=== PATIENT | female | born 1955 | race Hispanic/Latino ===

== ENCOUNTER 2021-08-16 10:01 | Outpatient (CLI) | payer MEDICARE, SELFPAY ==
[2021-08-16 20:14] LABS: Hemoglobin 12.3 g/dL (12.0-15.0); Mean Corpuscular HGB Conc 31.5 g/dl (32-36); Mean Corpuscular Hemoglobin 29.9 pg (26-34); Mean Corpuscular Volume 94.7 fl (80-100); Mean Platelet Volume 9.3 fl (7.4-10.4); Platelet Count Result 334 k/mm3 (150-375); Red Blood Count 4.12 M/mm3 (4.2-5.4); Red Cell Distribution Width 13.4 % (11.5-14.5); White Blood Count 5.9 K/mm3 (4.5-10.0)
[2021-08-16 20:41] LABS: LDL Cholesterol Direct 182 mg/dL
[2021-08-16 20:42] LABS: Alanine Aminotransferase 25 U/L (6-35); Albumin Level 4.9 g/dL (3.5-5.1); Alkaline Phosphatase 98 U/L (38-126); Anion Gap 8 mmol/L (8-16); Aspartate Amino Transferase 35 U/L (14-36); Bilirubin,Total 0.4 mg/dL (0.2-1.3); Blood Urea Nitrogen 13 mg/dL (7-17); Calcium 9.5 mg/dL (8.4-10.2); Carbon Dioxide 27 mmol/L (22-30); Chloride 102 mmol/L (98-107); Estimated Glomerular Filt Rate 45; Glucose 86 mg/dL (65-110); HDL Direct 57 mg/dL; Sodium 137 mmol/L (137-145); Triglycerides 169 mg/dL (<150)
[2021-08-16 21:07] LABS: Cholesterol 334 mg/dL (0-200)
== END 2021-08-16 10:02 | disposition home or self-care (01) ==
PROVIDERS: PCP Family Medicine; Visit Provider Family Medicine
DX: Z00.00 Encounter for general adult medical examination without abnormal findings (principal); I16.0 Hypertensive urgency
CPT/HCPCS: 36415; 80053; 80061; 84443; 85027

== ENCOUNTER 2022-06-02 06:22 | Observation (INO) | payer MEDICARE, MEDICAID, SELFPAY ==
[2022-06-02] VITALS (15 sets, daily range): BP systolic 113–168; BP diastolic 57–98; PULSE 68–93; RESP 16–28; TEMP 36.6–36.9; O2SAT 98–100; BMI 23.9
--- NOTE | ~2022-06-02 | CT_ITS ---
EXAMINATION: CTA BRAIN/CAROTID DATE: 06/02/2022 10:17 INDICATION: Subacute infarct TECHNIQUE: Computed tomographic angiography (CTA) of the head and neck was performed with 100 mL Omni paque-350 intravenous contrast. Multiplanar reconstructions and maximum intensity projection 3D-recon structions of the carotid arteries and of the intracranial arteries were created by the technologist on a separate workstation. Automated exposure control and iterative reconstruction technique were emp loyed.The dose-length product was 996.81 mGy-cm. COMPARISON: Head CT dated FINDINGS: Carotid arteries: Minimal atherosclerotic plaque along the normal caliber aortic arch. Additional small amount of ather osclerotic plaque with 0% stenosis at the origin of the left subclavian artery. There is no evident a therosclerotic plaque with 0% stenosis of the right carotid bulb relative to normal distal artery lum en diameter (NASCET criteria). There is normal of atherosclerotic plaque but also with 0% stenosis of the left carotid bulb relative to normal distal artery lumen diameter. Bilateral vertebral arteries are codominant with 40% stenosis at the origin of the right vertebral artery. Cervical soft tissues a nd visualized superior mediastinum are unremarkable. The visualized mid to upper lungs are clear. Mod erate cervical spondylosis. Intracranial arteries Small amount of atherosclerotic plaque at the bilateral carotid siphons and right vertebral artery wi thout hemodynamically significant stenosis. There is no hemodynamically significant stenosis in the v ertebral, basilar and internal carotid arteries. The intracranial left vertebral artery is dominant. There are no aneurysms identified. Both A1 and P1 segments are patent. Cerebral arterial arborizati on appears symmetric. Age-indeterminate but likely old small lacunar infarcts in the bilateral anteri or frontal lobe white matter. IMPRESSION: 1. 0% stenosis of the right and left carotid bulbs relative to normal distal artery lumen diameter (N ASCET criteria). 2. Small amount of nonhemodynamically significant atherosclerotic plaque at the left vertebral artery and bilateral carotid siphons. 3. A couple small likely old lacunar infarcts in the left or right frontal lobe white matter. Reviewed, dictated and finalized at location A. IMPRESSION: 1. 0% stenosis of the right and left carotid bulbs relative to normal distal ar abdiel lumen diameter (NASCET criteria). 2. Small amount of nonhemodynamically significant atherosclerotic plaque at the left vertebral artery and bilateral carotid siphons. 3. A couple small likely old lacunar infarcts in the left or right frontal lobe white matter.
--- NOTE | ~2022-06-02 | CT_ITS ---
EXAMINATION: CT brain wo con INDICATION: Transient alteration of awareness COMPARISON: None TECHNIQUE: Standard unenhanced head CT. The dose-length product (DLP) was 605.33 mGy-cm. The mA was a djusted according to patient size. Iterative reconstruction technique was employed. FINDINGS: There is no intracranial hemorrhage, acute infarction, or abnormal mass lesion. There are a reas of low attenuation in the left caudate left frontal lobe which could reflect subacute infarction . There are old infarcts in the left cerebellum and right basal ganglia. The ventricles are normal. T here is no abnormal mass effect or midline shift. The bernard-white matter differentiation is normal. Th e basal cisterns are patent. The orbits are normal. The paranasal sinuses, mastoids and calvarium are normal. IMPRESSION: 1. Hypoattenuation in the left caudate and left frontal lobe which could reflect subacute infarct. Pr ior infarcts in the left cerebellum and right basal ganglia. Reviewed, dictated and finalized at location L. IMPRESSION: 1. Hypoattenuation in the left caudate and left frontal lobe which could reflec t subacute infarct. Prior infarcts in the left cerebellum and right basal gangl ia.
--- NOTE | ~2022-06-02 | MR_ITS ---
MRI of the brain Clinical History: CVA Technique: Axial and sagittal T1-weighted images were acquired. These were followed by axial T2-weigh jordan, diffusion weighted, gradient, and FLAIR images. Following intravenous administration of 12 cc Mu ltiHance gadolinium, T1-weighted fat-sat imaging was performed in the axial and coronal planes. Findings: There is no acute infarct, acute intracranial hemorrhage or mass lesion. There are multiple foci of hemosiderin predominantly in the cerebellum and occipital lobes. There are moderate to exten sive chronic white matter changes throughout the white matter bilaterally. Probable small chronic lef t cerebellar lacunar infarct. Ventricles and subarachnoid spaces are mildly dilated. Orbits are unremarkable. Paranasal sinuses and mastoid air cells are clear. Major intracranial flow voids appear intact. Sagittal midline structures are intact. No abnormal postcontrast enhancement identified. IMPRESSION: No acute intracranial abnormality seen. Moderate to extensive chronic white matter disease and scattered small foci of hemosiderin, especiall y in the cerebellum and occipital lobes. Consider amyloid angiopathy. Reviewed, dictated and finalized at location . IMPRESSION: No acute intracranial abnormality seen. Moderate to extensive chronic white matter disease and scattered small foci of hemosiderin, especially in the cerebellum and occipital lobes. Consider amyloid angiopathy.
--- NOTE | ~2022-06-02 | XR_ITS ---
EXAMINATION: XR chest 2V DATE: 06/02/2022 08:25 INDICATION: Syncope TECHNIQUE: PA and lateral views of the chest were obtained. COMPARISON: None FINDINGS: Linear discoid atelectasis/scarring at the right lung base. No other airspace opacities, pulmonary ed karishma, pleural effusion or pneumothorax. Heart size normal. Tortuous thoracic aorta. Moderate degenerat vicki skeletal changes in the spine and at both shoulder. IMPRESSION: 1. Mild right basilar discoid atelectasis. Reviewed, dictated and finalized at location A.
--- NOTE | 2022-06-02 06:42 | ECG_ITS ---
Measurements Intervals [place] Rate: 88 P: 49 CA: 143 QRS: 11 QRSD: 73 T: 68 QT: 324 QTc: 392 Interpretive Statements SINUS RHYTHM NONSPECIFIC T-WAVE ABNORMALITY ABNORMAL ECG NO PREVIOUS ECG AVAILABLE FOR COMPARISON Electronically Signed On 06-02-2022 8:59:41 CDT by Russ Zhou M.D.
[2022-06-02 06:49] LABS: Basophils Absolute Auto 0.1 K/mm3 (0.0-0.1); Basophils Percent Auto 0.7 % (0.2-1.2); Eosinophils Absolute Auto 0.1 K/mm3 (0-0.3); Eosinophils Percent Auto 1.4 % (0-4.4); Hematocrit 34.4 % (37.0-47.0); Hemoglobin 11.4 g/dL (12.0-15.0); Immature Granulocyte Absolute 0.02 K/mm3 (0.00-0.031); Immature Granulocyte Percent A 0.3 % (0-0.5); Lymphocytes Absolute Auto 2.61 K/mm3 (0.9-3.2); Lymphocytes Percent Auto 35.7 % (18.3-44.2); Mean Corpuscular HGB Conc 33.1 g/dl (32-36); Mean Corpuscular Hemoglobin 30.6 pg (26-34); Mean Corpuscular Volume 92.2 fl (80-100); Mean Platelet Volume 8.4 fl (7.4-10.4); Monocytes Absolute Auto 0.4 K/mm3 (0.1-0.6); Monocytes Percent Auto 5.5 % (2.6-8.5); Neutrophils Absolute Auto 4.1 K/mm3 (1.3-6.7); Neutrophils Percent Auto 56.4 % (45.5-73.1); Platelet Count Result 371 k/mm3 (150-375); Red Blood Count 3.73 M/mm3 (4.2-5.4); Red Cell Distribution Width 13.2 % (11.5-14.5); White Blood Count 7.3 K/mm3 (4.5-10.0)
--- NOTE | 2022-06-02 07:52 | ED.SYNCOPE ---
HPI - Syncope General Chief Complaint: Syncope Stated Complaint: syncope Time Seen by Provider: 06/02/22 06:56 History of Present Illness HPI narrative: 66-year-old female presenting to the emergency department for evaluation after having a syncopal episode yesterday at approximately 11 AM. Patient does have history prior syncopal episode and does take medication for high blood pressure. Patient denies any other significant past medical history. Patient reports approximate 2 months ago she had a syncopal episode and did not seek medical work-up at that time. Patient reports yesterday at 11 AM she was standing at the sink doing dishes when she felt dizzy and lightheaded. Patient went sat down on the couch and started to have some onset of nausea. Patient states that She was aware she was on the ground and her was attempting to wake her up. Patient suspects approximately 5 minutes passed between the time that she had the onset of the lightheaded dizziness and by the time that she fell from the couch. Patient's states that he heard her hit the floor and immediately went to check on her. Patient did regain consciousness when he began speaking to her. Patient states she did have some emesis and states it was mainly water at that time. Patient felt improved after the episode and declined transport to the emergency department at that time. Patient presented to the ED this morning because the patient's convinced her to. At time of evaluation patient denies any pain or injury and denies any other complaints. Related Data Allergies Allergy/AdvReac Type Severity Reaction Status Date / Time No Known Allergies Allergy Verified 06/02/22 06:44 Review of Systems Review of Systems: All systems reviewed & are unremarkable except as noted in HPI and below [facility] Family History Family History Father Hypertension Heart disease Cerebrovascular accident Mother Asthma Heart disease Social History Social History (Updated 03/24/22 @ 10:08 by Ellen Callahan MA) Smoking packs per day: 1 Smoking cigarettes per day: 20.0 Smoking status: Current every day smoker Tobacco type: cigarettes Alcohol intake: never Substance use: never Substance use type: does not use Lack of Transportation: No Lack of Food: Never True Current Housing: Decline to Answer Concerned About Future Housing: Decline to Answer Difficulty Paying Gas/Electric Bills: Decline to Answer Difficulty Paying for Meds: Decline to Answer Currently Unemployed: Decline to Answer Education: Decline to Answer Difficulty w/ Childcare or Family Care: Decline to Answer Living arrangements: with roommate(s) Gender identity (if verbalized by the patient): Female Spiritual care concerns: No Agree to blood products: Yes Exam Narrative: APPEARANCE: Well appearing, no pain, no distress, well-nourished. HEAD: normocephalic, atraumatic. EYES: PERRLA/EOMI, conjunctivae clear. NOSE: Normal no drainage NECK: Supple. No adenopathy, no masses. RESPIRATORY: Airway patent, respirations nonlabored. Clear to auscultation bilaterally, no rales, rhonchi, wheezing. CARDIOVASCULAR: Regular rate and rhythm without murmurs rubs or gallops. ABDOMINAL: Soft, nontender, nondistended, normal bowel sounds MUSCULOSKELETAL: Moves all extremities. Strength/ROM intact, No edema, No calf tenderness. NEURO: Alert. Cranial nerves II through XII intact. Grossly intact SKIN: Warm, dry. Normal Color Course Course Emergency Course: 66-year-old female presenting to the emergency department for evaluation for a syncopal episode. Patient and were updated on the plan for the work-up, all questions concerns were addressed. CT head was ordered to evaluate for intracranial abnormality. EKG was ordered to evaluate for cardiac arrhythmias. Patient is on a monitor in the ED. Baseline labs incl
[2022-06-02 08:20] LABS: Alanine Aminotransferase 36 U/L (6-35); Albumin Level 4.9 g/dL (3.5-5.1); Alkaline Phosphatase 85 U/L (38-126); Anion Gap 8 mmol/L (8-16); Aspartate Amino Transferase 33 U/L (14-36); Bilirubin,Total 0.4 mg/dL (0.2-1.3); Blood Urea Nitrogen 14 mg/dL (7-17); Calcium 9.6 mg/dL (8.4-10.2); Carbon Dioxide 25 mmol/L (22-30); Chloride 106 mmol/L (98-107); Estimated CRCL calculation 32 ml/min; Estimated Glomerular Filt Rate 41; Glucose 103 mg/dL (65-110); Magnesium 2.2 mg/dL (1.6-2.3); Potassium 4.3 mmol/L (3.4-5.0); Sodium 139 mmol/L (137-145)
--- NOTE | 2022-06-02 13:42 | PM.IMHP ---
H&P: HPI History of Present Illness Date/Time: 06/02/22 15:15 Chief Complaint: Syncope. Narrative: This is a very pleasant 66-year-old female smoker with hypertension and chronic kidney disease who presented to the emergency department via private vehicle from home for evaluation after syncopal episode. The patient provides the following history. At around 11:00 yesterday she was standing at the sink washing dishes when she suddenly felt warm, lightheaded, dizzy, and weak. She went to the dining room table and sat down where she continued to feel poorly and the next thing she knows she is waking up on her side on the floor. Her boyfriend heard a thud and came to check on her. When she came to she was diaphoretic, nauseated, and she had several episodes of emesis. She had a similar episode 2 months ago with similar antecedent symptoms though she was never evaluated. She decided come in today for evaluation as her boyfriend kept encouraging her to do so. Her vital signs have been stable since arrival. Labs were reassuring and essentially unchanged when compared to prior tests. EKG showed a sinus rhythm with nonspecific T-wave abnormalities. Head CT showed hypoattenuation in the left caudate and left frontal lobe which could reflect subacute infarct; prior infarct were noted in the left cerebellum and right basal ganglia. With further questioning she has no known history of stroke, carotid artery disease, or cardiac dysrhythmia. She denies vertigo, visual changes, facial droop, difficulty speaking and swallowing, focal weakness, and paresthesias. No palpitations or sensations of racing heart. She is being admitted in this setting for closer monitoring and further workup. Review of Systems Review of Systems: Twelve systems were reviewed and are negative except for as per HPI. [facility] Past Medical History Medical History (Updated 06/02/22 @ 21:16 by Alice Plaza PA-C) Chronic kidney disease, stage 3 Hypertension Tobacco dependence Surgical History Surgical History (Updated 06/02/22 @ 21:12 by Alice Plaza PA-C) No history of previous surgery Family History Family History Father Hypertension Heart disease of an SC in early 50s. Cerebrovascular accident Mother Asthma Heart disease Sibling Heart disease Brother from an SC at age 50. Social History Social History (Updated 06/02/22 @ 21:14 by Alice Plaza PA-C) Social History: Surrogate medical decision maker: Brodie Roque, friend. Code status: Full code. Smoking packs per day: 1 Smoking cigarettes per day: 20.0 Smoking status: Current every day smoker Tobacco type: cigarettes Alcohol intake: never Substance use: never Substance use type: does not use Lack of Transportation: No Lack of Food: Never True Current Housing: Decline to Answer Concerned About Future Housing: Decline to Answer Difficulty Paying Gas/Electric Bills: Decline to Answer Difficulty Paying for Meds: Decline to Answer Currently Unemployed: Decline to Answer Education: Decline to Answer Difficulty w/ Childcare or Family Care: Decline to Answer Additional living arrangements comments: The patient lives with her friend Brodie in [place]. She is originally from the [facility]. Her 3 children still live in the [facility]. Additional occupation/education comments: Retired. Spiritual care concerns: No Agree to blood products: Yes Meds Home Medications and Allergies Home Medications Medication Instructions Recorded Confirmed Type amlodipine 10 mg tablet 10 mg PO DAILY #90 tabs 12/23/21 06/02/22 Rx lisinopril 20 mg tablet 20 mg PO DAILY #90 tabs 12/23/21 06/02/22 Rx Allergies Allergy/AdvReac Type Severity Reaction Status Date / Time No Known Allergies Allergy Verified 06/02/22 06:44 Vital Signs Vital Signs - 24 hr
--- NOTE | 2022-06-02 16:47 | ADMGEN ---
This patient, Shweta Morales, was admitted to Medical Room 344-01. Patient/family oriented to hospital policies and general routines including ID bracelet, bed and alarms, visiting hours, pain management, procedures, bathroom and other care routines, personal items, smoking policy, room service/diet, and visiting hours. Information on how to activate the Rapid Response Team has been discussed. Patient/Family are encouraged to report perceived risks to care and to ask questions if they do not understand what they are told or what they should do.
[2022-06-03] VITALS (8 sets, daily range): BP systolic 120–143; BP diastolic 63–77; PULSE 66–80; RESP 16–18; TEMP 36.6–37; O2SAT 98–100
[2022-06-03 05:35] LABS: Hemoglobin 10.2 g/dL (12.0-15.0); Mean Corpuscular HGB Conc 32.9 g/dl (32-36); Mean Corpuscular Hemoglobin 30.2 pg (26-34); Mean Corpuscular Volume 91.7 fl (80-100); Mean Platelet Volume 8.3 fl (7.4-10.4); Platelet Count Result 326 k/mm3 (150-375); Red Blood Count 3.38 M/mm3 (4.2-5.4); Red Cell Distribution Width 13.3 % (11.5-14.5); White Blood Count 5.5 K/mm3 (4.5-10.0)
[2022-06-03 05:53] LABS: Alanine Aminotransferase 35 U/L (6-35); Albumin Level 4.4 g/dL (3.5-5.1); Alkaline Phosphatase 74 U/L (38-126); Anion Gap 9 mmol/L (8-16); Aspartate Amino Transferase 33 U/L (14-36); Bilirubin,Total 0.6 mg/dL (0.2-1.3); Blood Urea Nitrogen 20 mg/dL (7-17); Calcium 9.1 mg/dL (8.4-10.2); Carbon Dioxide 25 mmol/L (22-30); Chloride 104 mmol/L (98-107); Cholesterol 306 mg/dL (0-200); Estimated CRCL calculation 32 ml/min; Estimated Glomerular Filt Rate 41; Glucose 94 mg/dL (65-110); HDL Direct 51 mg/dL; Magnesium 2.3 mg/dL (1.6-2.3); Potassium 4.1 mmol/L (3.4-5.0); Sodium 138 mmol/L (137-145); Triglycerides 150 mg/dL (<150)
[2022-06-03 06:33] LABS: Thyroid Stimulating Hormone Reflex 0.922 uIU/mL (0.465-4.68)
[2022-06-03 07:31] LABS: LDL Cholesterol Direct 172 mg/dL
[2022-06-03] MEDS: amLODIPine BESYLATE 5 MG TABLET 10 MG PO (09:47)
[2022-06-03] MEDS: ATORVASTATIN 40 MG TABLET PO (09:47)
[2022-06-03] MEDS: ASPIRIN 81 MG ENTERIC TABLET PO (09:47)
[2022-06-03] MEDS: lisinopriL 20 MG TABLET PO (09:47)
--- NOTE | 2022-06-03 11:46 | WPDNEURCNPN ---
Assessment and Plan Assessment and plan (1) Syncope: Qualifiers: Syncope type: unspecified Qualified Code(s): R55 - Syncope and collapse Code(s): R55 - Syncope and collapse Status: Acute (2) Hypertension: Code(s): I10 - Essential (primary) hypertension Status: Acute (3) Tobacco dependence: Code(s): F17.200 - Nicotine dependence, unspecified, uncomplicated Status: Acute Plan Shweta Morales is a 66 year old female with a history of hypertension, chronic smoking and CKD presenting due to syncopal episode. Suspect vasovagal syncope. There was a small amount of atherosclerosis noted in the left vertebral artery, but not significant amount. - Agree with initiation of aspirin and Lipitor - Okay to discharge Consult date: 06/03/22 Reason for consult: Syncope, concern for stroke HPI: Shweta Morales is a 66 year old female with a history of hypertension, chronic smoking and CKD presenting due to syncopal episode. Patient had an episode of lightheadedness/dizziness that occurred while she was washing the dishes. She then went to sit down, but next thing she knows she is waking up on the floor. Her boyfriend heard a thud and came to check on her. She appeared to be diaphoretic, nauseated, and had several episodes of emesis. In the past she has had a similar episode with the same preceding symptoms, but she never sought evaluation at that time. She presented to [facility] ED yesterday where her blood pressure was in the 130-160s systolic. Labs were unrevealing. EKG showed sinus rhythm. CT head showed hypodensity in the left caudate and the left frontal lobe, that was concerning for subacute infarct. MRI brain has been done which did not show any acute or subacute infarct. She also had a CTA brain/carotid which showed small amount of hemodynamically insignificant plaque in the left vertebral artery and bilateral carotid siphons. Review of Systems Constitutional: Constitutional: Denies chills, Denies fever(s) and Denies weight loss Eyes: Eyes: Denies diplopia and Denies loss of vision ENT: Denies dizziness, Denies hearing loss and Denies tinnitus Cardiovascular: Cardiovascular: Denies chest pain, Reports syncope and Denies dyspnea Respiratory: Respiratory: Denies cough, Denies dyspnea and Denies wheezing Gastrointestinal: Gastrointestinal: Denies abdominal pain, Denies change in bowel habits, Reports nausea and Reports vomiting Genitourinary: Genitourinary: Denies urinary incontinence Musculoskeletal: Musculoskeletal: Denies arthralgias and Denies joint swelling Integumentary/Breasts: Skin/Breast: Denies new lesions and Denies rash Neurologic: Reports as per HPI, Denies dizziness, Denies syncope and Denies loss of vision Psychiatric: Psychiatric: Denies anxiety and Denies depression Endocrine: Endocrine: Denies cold intolerance and Denies heat intolerance Hematologic/Lymphatic: Hematologic/Lymphatic: Denies easy bleeding and Denies easy bruising Allergic/Immunologic: Allergic/Immunologic: Denies no additional allergic/immunologic complaints and Denies wheezing PMFSH Past Medical History Medical History Chronic kidney disease, stage 3 Hypertension Tobacco dependence Surgical History Surgical History No history of previous surgery Family History Family History Father Hypertension Heart disease of an CA in early 50s. Cerebrovascular accident Mother Asthma Heart disease Sibling Heart disease Brother from an CA at age 50. Social History Social History Social History: Surrogate medical decision maker: Brodie Roque, friend. Code status: Full code. Smoking packs per day: 1 Smoking cigarettes per day: 20.0 Smoking
--- NOTE | 2022-06-03 13:56 | PM.DS ---
DS: Admitting Diagnosis Discharge Date 06/03/22 Admitting Diagnosis Syncope DS: Discharge Diagnosis Discharge Diagnosis (1) Syncope: Qualifiers: Syncope type: unspecified Qualified Code(s): R55 - Syncope and collapse Code(s): R55 - Syncope and collapse Status: Acute (2) Abnormal brain CT: Code(s): R90.89 - Other abnormal findings on diagnostic imaging of central nervous system Status: Acute (3) Hypertension: Code(s): I10 - Essential (primary) hypertension Status: Acute (4) Chronic kidney disease, stage 3: Code(s): N18.30 - Chronic kidney disease, stage 3 unspecified Status: Acute (5) Tobacco dependence: Code(s): F17.200 - Nicotine dependence, unspecified, uncomplicated Status: Acute DS: Summary Hospital Course Reason for hospitalization: 66yo female smoker with hypertension and chronic kidney disease who presented after syncopal episode.??Please see H&P for details. Hospital Course: Patient had a syncopal episode the day prior to admission. She was noted to be diaphoretic, nauseated, and had several episodes of emesis. BP was mildly elevated but vital signs normal on presentation. EKG showed normal sinus rhythm with nonspecific T-wave abnormalities. Echo showing EF 65-70% with Grade I diastolic dysfunction. Head CT showed hypoattenuation in the left caudate and left frontal lobe which could reflect subacute infarct; prior infarct were noted in the left cerebellum and right basal ganglia. She has no known history of stroke, carotid artery disease, cardiac dysrhythmia or seizures. MRI brain showing no acute intracranial abnormalities but moderate to extensive chronic white matter disease and scattered small foci of hemosiderin especially in the cerebellum and occipital lobes. Consider amyloid angiopathy. It did show probable small chronic left cerebellar lacunar infarct. CXR showing mild right basilar discoid atelectasis and CTA of the head/neck showing 0% stenosis right and left carotid bulbs, small amount of atherosclerotic plaque and small likely old lacunar infarcts in the frontal lobe (but again not seen by MRI). She was educated about the benefits of smoking cessation. Plan to add ASA and lipitor for secondary prevention given probably old lacunar infarct. Blood pressure was reasonably well controlled here. Orthostatic vital signs showed her SBP dropped from 143 to 120 with standing but asymptomatic. Will defer to PCP for further workup of possible amyloid angiopathy. She overall did well and was able to be discharged on 06/03/22 Status at Discharge Cognitive/behavioral status at discharge: stable Time Spent with Patient Time attestation: Total time spent providing and/or coordinating discharge services: 35 minutes Time spent: Greater than 30 minutes Exam Narrative: AF 98.6 120/77 80 16 100% ra Gen - NARD Chest - CTA bilaterally, nml RR CV - RRR S1/S2 Abd - Soft, NT/ND, Positive BS Ext - No pedal edema Neuro - Alert and oriented. Nonfocal exam. Psych - Nml mood and affect Skin - Warm and dry DS: Data Data Completed and Pending Labs on day of discharge: Labs from last 24 hours 06/03/22 05:15 WBC 5.5 RBC 3.38 L Hgb 10.2 L Hct 31.0 L MCV 91.7 MCH 30.2 MCHC 32.9 RDW 13.3 Plt Count 326 MPV 8.3 Sodium 138 Potassium 4.1 Chloride 104 Carbon Dioxide 25 Anion Gap 9 BUN 20 H Creatinine 1.30 H Estim Creat Clear Calc 32 Estimated GFR 41 L Glucose 94 Calcium 9.1 Magnesium 2.3 Total Bilirubin 0.6 AST 33 ALT 35 Alkaline Phosphatase 74 Total Protein 7.0 Albumin 4.4 Triglycerides 150 Cholesterol 306 H LDL Cholesterol Direct 172 HDL Direct 51 TSH (Reflex) 0.922 Discharge Plan Discharge Attending physician on discharge: Brant Medina Consulting providers: Ora Ribera Discharging Clinician: Brant Medina Anticipated Discharge Date/Time:
--- NOTE | 2022-06-03 21:21 | ECHO_ITS ---
Patient Info Name: Shweta Morales Age: 66 years : 1955 Gender: Female Ht: 63 in Wt: 135 lbs BSA: 1.66 m2 HR: 74 bpm BP: 131 / 64 mmHg Heart Rhythm: Sinus Rhythm Technical Quality: Fair Exam Date: 06/03/2022 10:39 AM Exam Location: [facility] Patient Status: Outpatient Admit Date: 06/02/2022 Staff Ordering Physician: Alice Plaza PA-C Pinball Machine Repairer: Juliane Jay RDCS Attending Provider: Sunil Alfonso MD Referring Physician: Bola WYMAN; Exam Type: CA echo doppler w bubble study Study Info Indications R55 - Syncope and collapse Complete two-dimensional, color flow and Doppler transthoracic echocardiogram is performed with agitated saline. Contrast/Agitated Saline Contrast/Ag. Saline: Agitated Saline Amount: 20.00 ml Administered By: Ashley Silverio Existing IV Access: Yes IV Access Condition: patent with no signs of infiltration Summary 1. Left ventricular chamber dimension is normal. 2. Left ventricular systolic function is normal, estimated at 65-70%. 3. The left ventricular diastolic function is grade I diastolic dysfunction. 4. E/e' 15 is elevated. 5. No pulmonary hypertension, estimated pulmonary arterial systolic pressure is 8 mmHg. Left Ventricle E/e' 15 is elevated. Left ventricular chamber dimension is normal. Left ventricular systolic function is normal, estimated at 65-70%. The left ventricular diastolic function is grade I diastolic dysfunction. Right Ventricle Right ventricular systolic function is normal and with normal TAPSE 2.2 cm. Right ventricular chamber dimension is normal. Left Atria Left atrial chamber dimension is normal. Right Atria Right atrial chamber dimension is normal. Atrial Septum Agitated saline injection with and without valsalva maneuver opacified right side cardiac chambers without shunt to left side cardiac chambers. Intact interatrial septum visualized by 2D and agitated saline imaging. Aortic Valve The aortic valve is trileaflet. There is no aortic valve stenosis. There is no aortic valve regurgitation. Pulmonic Valve There is no pulmonic regurgitation. Mitral Valve There is no mitral valve stenosis. There is no mitral valve regurgitation. Tricuspid Valve There is no tricuspid valve regurgitation. No pulmonary hypertension, estimated pulmonary arterial systolic pressure is 8 mmHg. Pericardium/Pleural There is no pericardial effusion. Inferior Vena Cava Normal inferior vena cava with >50% collapse upon inspiration consistent with normal right atrial pressure, 5 mmHg. Aorta The aortic root size at the sinus of Valsalva is normal. Left Ventricular Outflow Tract Name Value Normal LVOT 2D LVOT Diameter 2.0 cm LVOT Doppler LVOT Peak Gradient 5 mmHg LVOT Mean Gradient 2 mmHg LVOT VTI 16 cm LVOT VTI/AV VTI Ratio 0.6 LVOT Stroke Volume 51 ml LVOT CO 3.8 l/min LVOT CI 2.3 l/min/m2 Pulmonic Valve
== END 2022-06-03 16:00 | disposition home or self-care (01) ==
LOC: ANHED 07:07 → ANH3MED 16:16 → ANH3MEDSUR 06-06 10:52
PROVIDERS: Emergency Medicine; Physician Assistant; Admitting Provider Family Medicine; Emergency Provider Emergency Medicine; PCP Family Medicine; Visit Provider Internal Medicine
DX: R55 Syncope and collapse (principal); R90.89 Other abnormal findings on diagnostic imaging of central nervous system; I12.9 Hypertensive chronic kidney disease with stage 1 through stage 4 chronic kidney disease, or unspecified chronic kidney disease; N18.30 Chronic kidney disease, stage 3 unspecified; F17.210 Nicotine dependence, cigarettes, uncomplicated; R79.89 Other specified abnormal findings of blood chemistry; J98.11 Atelectasis; R90.82 White matter disease, unspecified; R94.31 Abnormal electrocardiogram [ECG] [EKG]; R40.4 Transient alteration of awareness; Z86.73 Personal history of transient ischemic attack (TIA), and cerebral infarction without residual deficits; Z82.49 Family history of ischemic heart disease and other diseases of the circulatory system; Z82.3 Family history of stroke
CPT/HCPCS: 36415; 70450; 70496; 70498; 70553; 71046; 80053; 80061; 83735; 84443; 85025; 85027; 93005; 93306; 96375; 99285; A9270; A9577; G0378; Q9967